=== PATIENT | male | born 1935 | race Caucasian/White ===

== ENCOUNTER 2017-09-24 16:36 | Emergency (ER) | payer OTHER ==
[~2017-09-24] VITALS: Ht 182.9 cm; Wt 103.0 kg
[2017-09-24] MEDS ORDERED: METFORMIN HCL500 MG PO (16:48)
[2017-09-24] MEDS ORDERED: SINEMET 25-2501 EAC1 PO (16:49)
[2017-09-24] MEDS ORDERED: INHALER (16:49)
[2017-09-24 17:12] LABS: ABSOLUTE EOSINOPHILS 0.1 thou/uL (0.0-0.7); ABSOLUTE LYMPHOCYTES 0.8 thou/uL (0.8-5.3); ABSOLUTE MONOCYTES 0.5 thou/uL (0.0-1.2); ABSOLUTE NEUTROPHILS 3.4 thou/uL (1.6-8.1); BASOPHILS 0.3 %; EOSINOPHILS 1.5 %; HEMATOCRIT 45.8 % (42.0-52.0); HEMOGLOBIN 15.6 gm/dL (14.0-18.0); LYMPHOCYTES 16.3 %; MCHC 34.1 g/dL (28.0-37.0); MONOCYTES 11.1 %; MPV 9.5 fl. (7.2-11.1); NUCLEATED RBCS 0 /100WBC; PLATELET COUNT* 161 thou/uL (150-400); POLYS 70.8 %; RBC 5.03 mil/uL (4.50-6.00); RDW-CV 13.5 % (10.5-14.5); WBC 4.8 thou/uL (4.0-11.0)
[2017-09-24 17:22] LABS: ANION GAP 9 mmol/L (7-16); BUN 13 mg/dL (7-18); CALCIUM 8.9 mg/dL (8.5-10.1); CHLORIDE 105 mmol/L (98-107); CO2 28 mmol/L (21-32); CREATININE 1.1 mg/dL (0.6-1.3); GLUCOSE 210 mg/dL (70-99); POTASSIUM 3.9 mmol/L (3.5-5.1); SODIUM 142 mmol/L (136-145)
[2017-09-24 17:26] LABS: APTT 25.5 Seconds (25.0-31.3); INR 1.1; PROTIME 10.6 Seconds (9.20-11.50)
[2017-09-24 17:33] LABS: ALBUMIN 3.6 g/dL (3.4-5.0); ALKALINE PHOSPHATASE 98 U/L (46-116); NT-PRO BRAIN NAT PEPTIDE 381 pg/mL (<300); SGOT 15 U/L (15-37); SGPT 17 U/L (30-65); TOTAL BILIRUBIN 0.6 mg/dL (<0.1-1.0); TOTAL PROTEIN 6.9 g/dL (6.4-8.2); TROPONIN-I LEVEL <0.06 ng/mL (<0.06)
[2017-09-24 17:38] LABS: URINE BILIRUBIN NEGATIVE (Negative); URINE BLOOD NEGATIVE (Negative); URINE CLARITY CLEAR; URINE COLOR YELLOW; URINE GLUCOSE-RANDOM NEGATIVE (Negative); URINE KETONES NEGATIVE (Negative); URINE LEUKOCYTES-REFLEX NEGATIVE (Negative); URINE NITRITE-REFLEX NEGATIVE (Negative); URINE PROTEIN NEGATIVE (Negative); URINE UROBILINOGEN 0.2 E.U./dl (0.2-1.0)
[2017-09-24] MEDS ORDERED: PREDNISONE 20 M20 M1 PO (18:13)
[2017-09-24 18:45] VITALS: BP 173/83
--- NOTE | 2017-09-25 14:10 | EKG ---
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 : 1935 Requested By: Zacarias Felder Order Number: [id number] MD: Yasir Henning Measurements Intervals [place] Rate: 98 P: 61 MO: 220 QRS: -8 QRSD: 87 T: 71 QT: 372 QTc: 476 Interpretive Statements Sinus tachycardia Multiform ventricular premature complexes Prolonged MO interval Probable left atrial enlargement No previous ECG available for comparison Electronically Signed On 09-25-2017 14:09:50 CDT by Yasir Henning [email or web address] <ELECTRONICALLY SIGNED> By: Yasir Henning MD, [facility] 09/25/17 1409 1641 1641 Yasir Henning MD, FACC /EPI
== END 2017-09-24 18:47 | disposition home or self-care (01) ==
LOC: M.ERS 16:36
PROVIDERS: Family Medicine
DX: R06.00 Dyspnea, unspecified (principal); R05 Cough; I10 Essential (primary) hypertension; G20 Parkinson's disease

== ENCOUNTER 2017-09-24 22:51 | Inpatient (IN) | payer OTHER ==
[~2017-09-24] VITALS: Ht 182.9 cm; Wt 103.4 kg
[~2017-09-24 22:51] MED LIST: INHALER; METFORMIN HCL500 MG PO; PREDNISONE 20 M20 M1 PO; SINEMET 25-2501 EAC1 PO
[2017-09-24 22:57] VITALS: BP 201/103
[2017-09-24 23:21] LABS: HEMATOCRIT 46.1 % (42.0-52.0); HEMOGLOBIN 15.7 gm/dL (14.0-18.0); MCH 30.9 pg (26.0-34.0); MCHC 34.1 g/dL (28.0-37.0); MCV 90.6 fL (80.0-100.0); MPV 9.9 fl. (7.2-11.1); NUCLEATED RBCS 0 /100WBC; PLATELET COUNT* 172 thou/uL (150-400); RBC 5.09 mil/uL (4.50-6.00); RDW-CV 13.2 % (10.5-14.5); WBC 7.2 thou/uL (4.0-11.0)
[2017-09-24 23:30] LABS: ANION GAP 10 mmol/L (7-16); BUN 14 mg/dL (7-18); CALCIUM 9.3 mg/dL (8.5-10.1); CHLORIDE 104 mmol/L (98-107); CO2 28 mmol/L (21-32); CREATININE 1.1 mg/dL (0.6-1.3); GLUCOSE 301 mg/dL (70-99); POTASSIUM 3.8 mmol/L (3.5-5.1); SODIUM 142 mmol/L (136-145)
[2017-09-24 23:31] LABS: INR 1.1; PROTIME 10.5 Seconds (9.20-11.50)
[2017-09-24 23:37] LABS: ALBUMIN 3.9 g/dL (3.4-5.0); ALKALINE PHOSPHATASE 101 U/L (46-116); SGOT 15 U/L (15-37); SGPT 7 U/L (30-65); TOTAL BILIRUBIN 0.5 mg/dL (<0.1-1.0); TOTAL PROTEIN 7.3 g/dL (6.4-8.2); TROPONIN-I LEVEL <0.06 ng/mL (<0.06)
[2017-09-24 23:59] LABS: ABSOLUTE LYMPHOCYTES 0.6 thou/uL (0.8-5.3); ABSOLUTE NEUTROPHILS 6.6 thou/uL (1.6-8.1); PLATELET ESTIMATE ADEQUATE
[2017-09-25] VITALS (13 sets, daily range): BP systolic 132–194; BP diastolic 61–100
[2017-09-25] LABS: LARGE PLATELETS OCCASIONAL
[2017-09-25 00:31] LABS: URINE BILIRUBIN NEGATIVE (Negative); URINE BLOOD NEGATIVE (Negative); URINE CLARITY CLEAR; URINE COLOR YELLOW; URINE GLUCOSE-RANDOM 3+ (Negative); URINE KETONES 1+ (Negative); URINE LEUKOCYTES-REFLEX NEGATIVE (Negative); URINE NITRITE-REFLEX NEGATIVE (Negative); URINE PROTEIN NEGATIVE (Negative); URINE UROBILINOGEN 0.2 E.U./dl (0.2-1.0)
--- NOTE | 2017-09-25 02:54 | NUR ---
PATIENT ARRIVED ON UNIT AT APPROX 0240. TRANSFERRED FROM STRETCHER TO TELE BED. SKIN ASSESSMENT COMPLETED. BLANCHABLE REDNESS NOTED TO BILATERAL BUTTOCKS. TURN Q2H COMMUNICATED TO SALESPERSON RECREATIONAL VEHICLES'S. BRANDAN HAD ONE EPISODE OF CHOKING WITH MILD EMESIS. DIET CHANGED TO NPO STATUS PENDING SWALLOW EVAL. SATIENT STATES THAT HE "TRIES TO USE HIS LEFT SIDE MORE BECAUSE MY TREMORS ARE WORSE ON THAT SIDE" SCD'S IN PLACE. SHOPPING INSPECTOR COMPLETED DOCUMENTED. FALL RISK PRECAUTIONS IN PLACE AT THIS TIME. WILL CONTINUE TO MONITOR
--- NOTE | 2017-09-25 04:28 | NUR ---
PATIENT HAD A BOUT OF PROJECTILE EMESIS. STATES HE JUST DOES NOT WANT TO LIVE LIKE THIS ANYMORE. EXPRESSED KOBY THAT HIS AND DAUGHTER WOULD BE UP TO SEE HIM IN THE AM. PATIENT RECEIVED BED BATH AND LINEN CHANGE. NO COMPLAINTS OF FURTHER NAUSEA AFTER COMPLETEION OF PATIENT CARE.
--- NOTE | 2017-09-25 07:06 | NUR ---
PATIENT REMAINED VERY NEEDY THROUGH THE NIGHT. STATES "I WANT OUT OF HERE" "THIS IS TORTURE", "WHEN WILL THE DR BE HER SO I CAN GO HOME" FALL RISK PRECAUTIONS REMAIN IN PLACE. REPOSITIONED OFTEN. HOURLY ROUNDING COMPLETED DOCUMENTED
--- NOTE | 2017-09-25 09:28 | NUR ---
ASSESSMENT COMPLETED REFER TO COMPUTER CHARTING. REPORT ANALYST TRACKING ST WITH PVCS. PATIENT RESTING IN BED UPSET ABOUT BEING IN THE HOSPITAL AND BEING NPO. PATIENTS MOUTH CLEANED WITH MOUTH SWABS. BED IN LOW AND LOCKED POSITION. CALL LIGHT WITHIN REACH. IV SALINE LOCKED. PATIENT ON 2 LITERS VIA NASAL CANNULA WITH O2 SATS READING 97%. NIH COMPLETED AND CHARTED. WILL CONTINUE TO MONITOR THIS SHIFT.
--- NOTE | 2017-09-25 12:38 | NUR ---
REPORT CALLED TO MITCH CAIN IN ICU. PATIENT TRANSFERED TO ROOM 1 AFTER MRI. FAMILY NOTIFIED.
--- NOTE | 2017-09-25 13:06 | NUR ---
Pt transferred to ICU prior to CM being able to access.
--- NOTE | 2017-09-25 14:24 | EKG ---
[place] [address] ELECTROCARDIOGRAM REPORT Name: LO LITTLE Room: [address] IN .R.#: [id number] Admission: 09/25/17 Attend Phys: Georgie Hernandez MD Discharge: Date of : 33 Report #: [id number] THIS REPORT FOR: //name// [facility] ED Test Date: 2017-09-24 Test Time: 23:43:39 Pat Name: LO LITTLE Department: Room: Gender: Tag Stringer: : 1935 Requested By: Morro Floyd Order Number: [id number] MD: Yasir Henning Measurements Intervals [place] Rate: 103 P: 30 MS: 213 QRS: -1 QRSD: 85 T: 47 QT: 341 QTc: 447 Interpretive Statements Sinus tachycardia Borderline prolonged MS interval Borderline T wave abnormalities No previous ECG available for comparison Electronically Signed On 09-25-2017 14:24:07 CDT by Yasir Henning [email or web address] <ELECTRONICALLY SIGNED> By: Yasir Henning MD, [facility] 09/25/17 1424 2343 [id number] Yasir Henning MD, FACC /EPI
--- NOTE | 2017-09-25 14:50 | NUR ---
ASSUMED CARE OF PATIENT MONITORING BP STARTED SALINE PER DR CHANG.
--- NOTE | 2017-09-25 17:14 | NUR ---
RECEIVED CONSULT FOR POSSIBLE REHAB ADMISSION. CONSULT HAS BEEN ACKNOWLEDGED BY DIRECTOR OF ACCREDITATION AND DR. VASQUEZ. PT ADMITTED WITH MEDULLARY STROKE. PT/OT/ST EVALUATIONS ARE PENDING WELL FURTHER MEDICAL WORK UP. WILL FOLLOW ALONG WITH PT TO SEE HOW HE PROGRESSES MEDICALLY AND PENDING THERAPY EVALUATIONS TO DETERMINE IF HE QUALIFIES FOR ACUTE REHAB. THANK YOU FOR THIS CONSULT.
--- NOTE | 2017-09-25 18:46 | NUR ---
PATIENT REFUSED MEAL TO ANXIOUS EAT GIVEN ZANAX TIMES 1, VERY VOCAL CONCERNED WITH LEFT FOOT MOVING.PROGRSSING TOWARD GOALS.
--- NOTE | 2017-09-25 19:43 | NUR ---
RECIEVED REPORT AND ASSUMED CARE OF PT AT 1900. PT EXTREMELY ANXIOUS ABOUT MUSCLE SPASM AND CRAMPING IN LEFT LEG. PAGED DR TIMMONS AND RECIEVED ORDERS FOR XANAX AND FENTANYL X 1 DOSE.
--- NOTE | 2017-09-25 21:35 | NUR ---
PT RESTLESS AND AGITATED. PT REPOSITIONED, MEDS GIVEN AT 1999 FOR PAIN AND ANXIETY. PT RINGING CALL LIGHT REPEATEDLY.
[2017-09-26] VITALS (11 sets, daily range): BP systolic 125–1172; BP diastolic 43–86
--- NOTE | 2017-09-26 00:33 | NUR ---
PT DISCONTINUED BOTH IV SITES, PULLED OFF MONITOR LEADS AND GOWN. RESTARTED 20 GUAGE SALINE LOCK IN RIGHT WRIST AND 18 GUAGE SALINE LOCK IN RIGHT FOREARM. REDRESSED PT AND INSTRUCTED TO CALL FOR ASSISTANCE.
[2017-09-26 04:38] LABS: ALBUMIN 3.2 g/dL (3.4-5.0); ALKALINE PHOSPHATASE 78 U/L (46-116); ANION GAP 5 mmol/L (7-16); BUN 23 mg/dL (7-18); CALCIUM 8.4 mg/dL (8.5-10.1); CHLORIDE 108 mmol/L (98-107); CHOLESTEROL 159 mg/dL (<200); CO2 31 mmol/L (21-32); CREATININE 1.1 mg/dL (0.6-1.3); GLUCOSE 159 mg/dL (70-99); HDL CHOLESTEROL 46 mg/dL (>40); LDL CHOLESTEROL 96 mg/dL (<100); POTASSIUM 3.7 mmol/L (3.5-5.1); SGOT 15 U/L (15-37); SGPT 11 U/L (30-65); SODIUM 144 mmol/L (136-145); TC:HDL 3.5 Ratio (Not establshd); TOTAL BILIRUBIN 0.4 mg/dL (<0.1-1.0); TOTAL PROTEIN 5.8 g/dL (6.4-8.2); TRIGLYCERIDE 85 mg/dL (<150); VLDL 17 mg/dL (<40)
[2017-09-26 04:40] LABS: SERUM ASSESSMENT Clear
--- NOTE | 2017-09-26 05:09 | NUR ---
PT TOOK OFF MONITORING LEADS. ENTERED PT'S ROOM AND FOUND PT REMOVING 18 GUAGE IN RIGHT OREARM WITH TEETH. PT INCONTINENT OF URINE.
--- NOTE | 2017-09-26 10:30 | NUR ---
SPOKE WITH PT AND . PT ALERT AND ABLE TO ANSWER ALL QUESTIONS. PT AND LIVE IN A SINGLE STORY HOME, HE USES A CANE. HE HAS NOT NEEDED ANY OTHER DME. HE IS FAIRLY INDEP WITH HIS ADL'S. PT DOES HAVE PARKINSON'S. THERAPY EVALS PENDING, WILL SEE HOW PT DOES WITH THERAPY TO DETERMINE DISCHARGE NEEDS. PT PLANS ON RETURNING HOME WITH . DISCUSSED ROLE OF CASE MGT, WILL CONTINUE TO FOLLOW.
--- NOTE | 2017-09-26 10:49 | NUR ---
PATIENT IS TELE STATUS.
--- NOTE | 2017-09-26 13:01 | NUR ---
CALLED REPORT TO PHIL CAIN. PATIENT WILL BE TRANSFERING TO ROOM 304 BY BED WITH NURSING STAFF. FAMILY UPDATED. ALL QUESTIONS ANSWERED TO NURSE. ALL BELONGINGS PACKED AND WILL BE SENT WITH PATIENT ALONG WITH CHART AND MEDICATIONS.
--- NOTE | 2017-09-26 16:37 | 2DMMODE ---
[place] [address] 2 D/M-MODE ECHOCARDIOGRAM Name: LO LITTLE Room: [address] IN [facility]#: [id number] Admission: 09/25/17 Attend Phys: Georgie Hernandez, Discharge: Date of : 33 Date of Service: 09/26/17 1636 Report #: [id number] THIS REPORT FOR: //name// APPROVED REPORT Study performed: 09/26/2017 10:40:37 EXAM: Comprehensive 2D, Doppler, and color-flow Echocardiogram Patient Location: In-Patient Room #: 001 Status: routine BSA: 2.25 HR: 102 bpm BP: 166/85 mmHg Rhythm: NSR Other Information Study Quality: Good Indications CVA/TIA Echo Enhancing Agent Indication: Rule out Shunt Agent(s) / Amount(s) Used: Agitated Saline 10 cc 2D Dimensions LVEF(%): 48.44 (>50%) IVSd: 14.95 (7-11mm) LVOT Diam: 22.15 (18-24mm) LVDd: 50.35 mm PWd: 11.72 (7-11mm) Ascending Ao: 34.82 (22-36mm) LVDs: 38.00 (25-40mm) Aortic Root: 30.93 mm Chandra's LVEF: 48.44 % Volumes Left Atrial Volume (Systole) LA ESV Index: 25.20 mL/m2 Aortic Valve AoV Peak Alban.: 1.53 m/s AO Peak Gr.: 9.37 mmHg LVOT Max P.14 mmHg AO Mean Gr.: 5.43 mmHg LVOT Mean P.09 mmHg LVOT Max V: 1.02 m/s AO V2 VTI: 28.23 cm LVOT Mean V: 0.66 m/[place] [address] 2 D/M-MODE ECHOCARDIOGRAM Name: LO LITTLE Room: [address] IN [facility]#: [id number] Admission: 09/25/17 Attend Phys: Georgie Hernandez, Discharge: Date of : 33 Date of Service: 09/26/17 1636 Report #: [id number] CHELA (VTI): 2.59 cm2 LVOT V1 VTI: 18.95 cm TDI Lateral E' Alban.: 0.10 m/s Pulmonary Valve PV Peak Alban.: 1.28 m/s PV Peak Gr.: 6.53 mmHg Left Ventricle The left ventricle is normal size. There is normal LV segmental wall motion. Mild to moderate concentric left ventricular hypertrophy. Left ventricular systolic function is moderately decreased. LVEF is 40%. Grade I - abnormal relaxation pattern. Right Ventricle The right ventricle is normal size. The right ventricular systolic function is normal. Atria The left atrium size is normal. Interatrial septum is intact without evidence of ASD or PFO. The right atrium size is normal. Aortic Valve Mild aortic valve sclerosis. No aortic regurgitation is present. There is no aortic valvular stenosis. Mitral Valve There is mitral annular calcification. Trace mitral regurgitation. No evidence of mitral valve stenosis. Tricuspid Valve The tricuspid valve is normal in structure. Unable to assess PA pressure. Trace tricuspid regurgitation. Pulmonic Valve The pulmonary valve is normal in structure. There is no pulmonic valvular regurgitation. Great Vessels The aortic root is normal in size. IVC is normal in size and collapses with >50% inspiration Pericardium There is no pericardial effusion. <Conclusion> [place] [address] 2 D/M-MODE ECHOCARDIOGRAM Name: LO LITTLE Room: [address]#: [id number] Admission: 09/25/17 Attend Phys: Georgie Hernandez, Discharge: Date of : 33 Date of Service: 09/26/17 1636 Report #: [id number] The left ventricle is normal size. Mild to moderate concentric left ventricular hypertrophy. Left ventricular systolic function is moderately decreased. LVEF is 40%. Grade I - abnormal relaxation pattern. The right ventricle is normal size. The left atrium size is normal. Mild aortic valve sclerosis. No aortic regurgitation is present. There is no aortic valvular stenosis. There is mitral annular calcification. Trace mitral regurgitation. The tricuspid valve is normal in structure. IVC is normal in size and collapses with >50% inspiration There is no pericardial effusion. There is normal LV segmental wall motion. Interatrial septum is intact without evidence of ASD or PFO. <ELECTRONICALLY SIGNED> By: Yasir Henning MD, [facility] 09/26/17 1636 1636 1636 Yasir Henning MD, FACC /INF
--- NOTE | 2017-09-26 17:03 | NUR ---
PATIENT TRANSFERED FROM ICU, TO [facility] AT 1350. TOOK REPORT FROM AZIZA, AGREE WITH REPORT AND ASSESMENT. PATIENT A&OX4, SLURRED SPEECH. ON ROOM AIR, IV RIGHT WRIST, SALINE LOCK. LEFT SIDED WEAKNESS. LEFT ARM FLACID, ABLE TO SQUEEZE LEFT HAND WITH MINIMAL STRENGHT, AND MOVE LEFT SHOULDER. ABLE TO LIFT LEFT LEG, REPORTING LEFT LEG SPASMS THAT IS NEW POST STROKE. BEDREST UNTIL SEEN BY PT AND OT. USING URINAL AND BEDPAN, ABLE TO CALL OUT APPROPRIATELY. NO C/O PIAN/N/V. NO OTHER CONCERNS AT THIS TIME. APPROPRIATE AND COOPORATIVE WITH CARE.
[2017-09-27] VITALS (8 sets, daily range): BP systolic 164–188; BP diastolic 64–87
[2017-09-27 02:07] LABS: GLYCOHEMOGLOBIN (HGB A1C) 7.4 % (4.8-5.6)
[2017-09-27 04:41] LABS: HEMATOCRIT 41.9 % (42.0-52.0); HEMOGLOBIN 14.6 gm/dL (14.0-18.0); MCH 31.5 pg (26.0-34.0); MCHC 34.9 g/dL (28.0-37.0); MCV 90.1 fL (80.0-100.0); MPV 10.4 fl. (7.2-11.1); RBC 4.65 mil/uL (4.50-6.00); RDW-CV 13.8 % (10.5-14.5); WBC 7.2 thou/uL (4.0-11.0)
[2017-09-27 05:00] LABS: CALCIUM 8.1 mg/dL (8.5-10.1); POTASSIUM 3.5 mmol/L (3.5-5.1); TOTAL BILIRUBIN 0.6 mg/dL (<0.1-1.0); TOTAL PROTEIN 5.5 g/dL (6.4-8.2)
--- NOTE | 2017-09-27 06:39 | NUR ---
PT SLEPT ON AND OFF OVERNIGHT, CO L FOOT SPASMS AT START OF SHIFT. ORDERS RECEIVED FOR ROBAXIN AND MEDS GIVEN WITH GOOD RELIEF. RWRIST SL. HS ACCUCHECK 185, INSULIN GIVEN ORDERED. AM LABS DRAWN. ABLE TO USE CALL LITE AND MAKE NEEDS KNOWN. SLURRED SPEECH, AOX4. L ARM AND L LEG WEAKNESS, WITH LIMITED MOVEMENT. PT TURNDED AND REPOSITIONED Q2 HOURS AND PRN HE WOULD ALLOW FOR SKIN CARE AND COMFORT. USING URINAL TO VOID. TYLENOL GIVEN ONCE OVERNIGHT. SWALLOWS PILLS WHOLE WITH THIN LIQUID WITHOUT DIFFICULTY. SUCTIONS MOUTH PRN HIMSELF FOR COMFORT.
--- NOTE | 2017-09-27 13:53 | NUR ---
DISCUSSED WITH DR MANNING, PT MAY SHOULD BE READY FOR TRSF TOMORROW. UPDATED PRADEEP/REHAB LIASON, AWAIT THEIR EVAL ON PHYSICAL THERAPY SEES PT. PT SLEEPING NOW, LEFT. WILL FOLLOW
--- NOTE | 2017-09-27 19:42 | NUR ---
PATIENT A&OX4, ON 2L O2 VIA NC. IV RIGHT WRIST SALINE LOCK. SUCTION AT BEDSIDE NEEDED FOR ACCESS MUCUS BUILDUP. UP WITH MAX ASSISTX2-3 WITH GAITBELT. C/O LEG PAIN AND MUSCLE SPASMS, RELEIF WITH MEDICATION. URINAL AT BEDSIDE, ABLE TO CALL OUT APPROPRIATELY. C/O SOA BREATHING TREATMENTS ORDERED AND STARTED, RELIEF NOTED. PATIENT REQUESTING SLEEP AIDE FOR TONIGHT, STATES HASN'T BEEN GETTING ADEQUATE SLEEP, MELATONIN ORDERED, TO BE GIVEN TONIGHT. NO OTHER CONCERS AT THIS TIME. APPROPRIATE AND COOPORATIVE WITH CARE.
[2017-09-28 03:17] VITALS: BP 155/75
--- NOTE | 2017-09-28 06:52 | NUR ---
PT SLIGHTLY ANXIOUS AT START OF SHIFT, CO SOA, VSS, ROOM AIR SAT 95%-98% ON O2 FOR COMFORT. LUNGS DIM. PT STATES IT MIGHT BE ANXIETY. MEDS GIVEN AND PT ABLE TO SLEEP LAST HALF OF SHIFT. HS ACCUCHECK 256, INSULIN GIVEN. NO LABS THIS MORNING. ABLE TO USE CALL LITE AND MAKE NEEDS KNOWN. TURNED AND REPOSITIONED Q2 HOURS AND PRN PT REQUEST. L HEMIPARESIS, ABLE TO MOVE L LEFT, OCC CO SPASM TO L LEG. SLURRED SPEECH BUT PT ABLE TO COMMUNICATE. TYLENOL GIVEN FOR DISCOMFORT. TELE SR, ST WITH PVCS.
[2017-09-28 07:40] VITALS: BP 173/73
--- NOTE | 2017-09-28 10:46 | NUR ---
PT VARIANCE, BECAUSE WORKING WITH PHYSICAL THERAPIST THIS MORNING.
--- NOTE | 2017-09-28 14:36 | NUR ---
ORDERS NOTED FOR DC TO INPT REHAB. CONFIRMED WITH DR JUAREZ THAT STRESS TEST CAN BE DONE OUTPT. DISCUSSED WITH PRADEEP/REHAB LIASON, AWAIT INSURANCE AUTH. PT AND AWARE
--- NOTE | 2017-09-28 14:54 | NUR ---
CONTINUING TO FOLLOW PT ALONG WITH DR. VASQUEZ. PT WORKING WITH THERAPIES HAS DEFINATE REHAB NEEDS. HAVE REQUESTED INSURANCE AUTHORIZATION. WILL PLAN TO ADMIT PT TO ACUTE REHAB ONCE MEDICALLY STABLE AND PENDING INSURANCE AUTHORIZATION. SPOKE WITH DENAE EVANS AND INFORMED HER OF PT'S TENTATIVE ACCEPTANCE TO REHAB PENDING AUTH. PER DENAE PT IS READY TO DISCHARGE TODAY.
[2017-09-28 15:32] VITALS: BP 149/65
[2017-09-28] MEDS ORDERED: ASPIRIN325 PO (16:34)
[2017-09-28] MEDS ORDERED: DULCOLAX5 MG PO (16:36)
[2017-09-28] MEDS ORDERED: COLACE100 MG PO (16:37)
[2017-09-28] MEDS ORDERED: METFORMIN HCL500 MG PO (16:38)
[2017-09-28] MEDS ORDERED: MELATONIN5 M1 PO (16:39)
[2017-09-28] MEDS ORDERED: LIPITOR 20 MG T20 M1 PO (16:39)
[2017-09-28] MEDS ORDERED: MUCINEX1200 MG PO (16:40)
[2017-09-28] MEDS ORDERED: MILK OF MA2400 MG/10 PO (16:40)
[2017-09-28] MEDS ORDERED: NORVASC5 M1 PO (16:42)
[2017-09-28] MEDS ORDERED: ALUM-MAG HYDRO360 ML PO (16:43)
[2017-09-28] MEDS ORDERED: PHENERGAN12.5 M2 PO (16:44)
[2017-09-28] MEDS ORDERED: SINEMET 25-2501 EAC1 PO (16:45)
[2017-09-28] MEDS ORDERED: MULTI VITAMIN1 EACH PO (16:46)
[2017-09-28] MEDS ORDERED: APAP650 PO (16:47)
[2017-09-28] MEDS ORDERED: VITAMINC500 PO (16:47)
[2017-09-28] MEDS ORDERED: VITAMIN D1000 UNIT PO (16:48)
[2017-09-28] MEDS ORDERED: ONDANSETRON HCL4 M2 PO (16:49)
[2017-09-28 16:51] VITALS: BP 149/65
--- NOTE | 2017-09-28 17:10 | NUR ---
PATIENT IS BEING DISCHARGED TO REHAB IN STABLE CONDITION. NO COMPLAINTS OF ANY PAIN TODAY. UP IN CHAIR PART OF THE DAY TOLERATED WELL. PATIENT SWALLOWS PILLS FINE WITH WATER ONLY. PATIENT LEFT VIA BED TO REHAB ROOM 322. REPORT GIVEN TO NURSE TAKING PATIENT.
[2017-09-28 17:21] VITALS: BP 149/65
[2017-09-28] MEDS ORDERED: DUONEB 2.5-0.5 M3 ML INH (17:43)
[2017-09-28] MEDS ORDERED: FISH OIL 1,001000 M2 PO (17:44)
[2017-09-28] MEDS ORDERED: ROBAXIN 750 MG750 M1 PO (17:46)
--- NOTE | 2017-10-02 12:50 | CON ---
[address] [address] CONSULTATION Name: SIDNEYLO Dimitrios Room: [address] IN M.R.#: [id number] Admission: 09/25/17 Attend Phys: Georgie Hernandez MD Discharge: 09/28/17 Date of : 34 Report #: [id number] THIS REPORT FOR: //name// CC: Ovidio Hernandez INDICATION: CVA. HISTORY OF PRESENT ILLNESS: The patient is an 82-year-old gentleman with Parkinson's who presented to the hospital and subsequently developed findings of stroke. By CTA, he was found to have a posterior right cerebral artery blockage and right internal carotid narrowing of 70% or greater. The patient was outside of the window for thrombolytics. He continues to have a facial droop and left hemiparesis. He denies any history of myocardial infarction or coronary artery disease. He reports stress testing 5 years ago at this hospital that was unremarkable. He has some dyspnea on exertion, but no shortness of breath at rest. He is without other cardiac complaint. EKG shows sinus rhythm with some nonspecific T-wave flattening, but no ST segment changes. Cardiac risk factors include hypertension and borderline dyslipidemia. He was recently started on metformin for hyperglycemia. PAST MEDICAL HISTORY: 1. Recent right posterior cerebral stroke. 2. Diabetes. 3. Hypertension. 4. Parkinson disease. 5. Borderline hyperlipidemia. FAMILY HISTORY: Noncontributory. SOCIAL HISTORY: The patient is . He does not smoke. He does not drink alcohol. ALLERGIES: None. HOME MEDICATIONS: Sinemet 25/250 one tablet b.i.d., metformin 500 mg b.i.d. REVIEW OF SYSTEMS: A 14-point review of systems positive for weakness of the left side, cough productive of thick sputum, dyspnea without orthopnea, diabetes and he wears glasses without acute visual change. Otherwise, 14-point review of systems was unremarkable. PHYSICAL EXAMINATION: VITAL SIGNS: Blood pressure 150/78, pulse 103 and regular. GENERAL: This is a pleasant gentleman who does not appear to be in distress. He has right-sided facial droop and [place] [address] CONSULTATION Name: LO LITTLE Room: [address]#: [id number] Admission: 09/25/17 Attend Phys: Georgie Hernandez MD Discharge: 09/28/17 Date of : 34 Report #: [id number] HEAD: Normocephalic, atraumatic. NECK: Without jugular venous distention. I do not appreciate carotid bruit. CHEST: Reveals clear lung penn without wheezes or rales. CARDIAC: Reveals a regular rhythm with normal S1 and S2. The patient has a soft S4. I do not appreciate any murmur. ABDOMEN: Reveals normal bowel sounds. The abdomen is soft, nontender. EXTREMITIES: Show no edema. Peripheral pulses are 2+ and easily palpable. SKIN: Warm and dry. LABORATORY DATA: A 12-lead EKG shows a normal sinus rhythm, first degree AV block, nonspecific T-wave flattening, no significant ST segment abnormalities. Labs are reviewed. Sodium 144, potassium 3.7, chloride 108, bicarbonate 31, BUN 23, creatinine 1.1, serum glucose 159. LFTs within normal limits. Troponins less than 0.06. Total cholesterol 159, triglycerides 85, HDL 46, LDL 96. White blood cell count 7.2, hemoglobin 15.7, platelet count 172,000. Carotid Doppler study shows significant velocity elevation in the mid right internal carotid artery. IMPRESSION AND RECOMMENDATIONS: 1. Acute cerebrovascular accident per primary physician and Neurology. 2. Cardiac evaluation to include echocardiogram and stress test. 3. Carotid vascular disease. The patient is being evaluated for possible right carotid endarterectomy in the near future. I do not see any cardiac contraindications, pending results of the stress test. 4. Hypertension. Would carefully adjust antihypertensive medication at this time as his blood pressure is mildly elevated. Would avoid any significant hypotension in post-cerebrovascular accident setting. 5. Borderline hyperlipidemia. Would recommend goal LDL of 70 or less in this patient with diabetes. <ELECTRONICALLY SIGNED> By: Barry Guardado MD, FACC 10/02/17 1250 1117 [id number] Guardado MD, FACC /nt
--- NOTE | 2017-10-29 15:17 | CON ---
[address] [address] CONSULTATION Name: SIDNEYLO Dimitrios Room: [address] IN .R.#: [id number] Admission: 09/25/17 Attend Phys: Georgie Hernandez MD Discharge: 09/28/17 Date of : 33 Report #: [id number] THIS REPORT FOR: //name// CC: Ovidio Hernandez DATE OF SERVICE: 09/25/2017 REASON FOR CONSULTATION: Acute CVA, carotid artery stenosis. HISTORY OF PRESENT ILLNESS: The patient is a very pleasant 82-year-old male who presented to the Emergency Department with slurred speech as well as left-sided weakness. A CTA of the head was obtained, which demonstrated 70% stenosis in the right internal carotid artery. We have been asked to evaluate the patient and give our opinion regarding these findings. He does have a history of Parkinson's disease and is followed by Dr. Haile with Neurology as an outpatient. 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 The patient currently reports continued slurred speech as well as left-sided weakness. Denies any new CVA or TIA type symptoms since admission. He denies any pain currently. He denies any nausea, vomiting, fevers, chills or chest pain. PAST MEDICAL HISTORY: 1. Parkinson's disease. 2. Diabetes mellitus. 3. Hypertension. 4. Chronic lung disease. PAST SURGICAL HISTORY: Cholecystectomy. SOCIAL HISTORY: He is a former smoker, denies any alcohol or illicit drug use. FAMILY HISTORY: Noncontributory due to his advanced age. ALLERGIES: No known drug allergies. HOME MEDICATIONS: 1. Glucophage 500 mg twice daily with meals. 2. Sinemet 25/250 mg 1 tablet twice daily. 3. An inhaler, actual medication is currently unknown. REVIEW OF SYSTEMS: A 12-point review of systems has been reviewed and is negative except for the above-mentioned in the history of present illness. PHYSICAL EXAMINATION: VITAL SIGNS: Temperature 36.5, heart rate 87, respiratory rate 16, [place] [id number] CONSULTATION Name: SIDNEYLO Room: [address]#: [id number] Admission: 09/25/17 Attend Phys: Georgie Hernandez MD Discharge: 09/28/17 Date of : 33 Report #: [id number] pressure 147/61, oxygen saturation 98% on 2 liters per nasal cannula. GENERAL: He is alert, oriented, in no acute distress. HEENT: Head is normocephalic, atraumatic. NECK: Supple, without jugular venous distention or carotid bruit. HEART: Regular rate and rhythm. CHEST: Lungs are clear to auscultation bilaterally. ABDOMEN: Soft, nontender, positive bowel sounds. EXTREMITIES: He has palpable bilateral radial and pedal pulses. NEUROLOGIC: He has a slight left facial droop, slurred speech, weakness of the left upper and lower extremities. He is able to move his left arm and leg with very little. LABORATORY DATA: Hemoglobin 15.7, hematocrit 46.1, white blood cell count 7.2, platelets 172. Sodium 142, potassium 3.8, chloride 104, CO2 28, BUN 14, creatinine 1.4, glucose is 201. ASSESSMENT AND PLAN: 1. Carotid artery stenosis with greater than 70% stenosis in the right internal carotid artery. We will obtain a carotid duplex for further evaluation of his disease. He will likely benefit from a right carotid endarterectomy, timing to be determined. Cardiology has been consulted for cardiac clearance. Of note, his acute stroke is not likely from his carotid artery stenosis as he has suffered a right medullary stroke, which would not be in the distribution from his carotid artery. 2. Acute cerebrovascular accident. Neurology is following, not felt to be a candidate for TPA. 3. Parkinson's disease. 4. Hypertension. 5. Diabetes mellitus. 6. Hyperlipidemia. We thank you for the opportunity to participate in the care of the patient. Please feel free to contact our office with any questions or concerns. <ELECTRONICALLY SIGNED> By: Kasi Rodriguez DO 10/29/17 1517 [id number] Bills /nt
--- NOTE | 2017-12-13 11:20 | CON ---
[address] [address] CONSULTATION Name: LO LITTLE Room: [address] IN M.R.#: [id number] Admission: 09/25/17 Attend Phys: Georgie Hernandez MD Discharge: 09/28/17 Date of : 33 Report #: [id number] THIS REPORT FOR: //name// CC: Ovidio Hernandez Evaluation and consultation regarding post-acute rehabilitation in an 82-year-old male with Parkinson's and a cerebrovascular accident. The patient was admitted to acute inpatient rehabilitation he was appropriate. Because of this timing, full consultation was not completed at this time and a full H and P and plan of care was dictated on the same day of service. <ELECTRONICALLY SIGNED> By: Jocelyn Belcher DO 12/13/17 1120 [id number] Belcher DO /nt
== END 2017-09-28 17:21 | DRG 64 ==
LOC: M.ERS 22:51 → M.ICU 09-25 01:42 → M.TBA-ER 09-25 01:42 → M.2W 09-25 01:42 → M.ICU 09-25 12:41 → M.3W 09-26 13:47
PROVIDERS: Emergency Medicine Emergency Medical Services; Internal Medicine; ADMIT Internal Medicine
DX: I63.9 Cerebral infarction, unspecified (principal); J96.01 Acute respiratory failure with hypoxia; I16.1 Hypertensive emergency; I10 Essential (primary) hypertension; I51.7 Cardiomegaly; I65.21 Occlusion and stenosis of right carotid artery; G20 Parkinson's disease; E11.9 Type 2 diabetes mellitus without complications; E78.5 Hyperlipidemia, unspecified; Z79.82 Long term (current) use of aspirin; Z79.899 Other long term (current) drug therapy; Z90.49 Acquired absence of other specified parts of digestive tract; Z87.891 Personal history of nicotine dependence

== ENCOUNTER 2017-09-28 17:03 | Inpatient (IN) | payer OTHER ==
[~2017-09-28] VITALS: Ht 185.4 cm; Wt 97.5 kg
[~2017-09-28 17:03] MED LIST changes: +ALUM-MAG HYDRO360 ML PO; +APAP650 PO; +ASPIRIN325 PO; +COLACE100 MG PO; +DULCOLAX5 MG PO; +LIPITOR 20 MG T20 M1 PO; +MELATONIN5 M1 PO; +MILK OF MA2400 MG/10 PO; +MUCINEX1200 MG PO; +MULTI VITAMIN1 EACH PO; +NORVASC5 M1 PO; +ONDANSETRON HCL4 M2 PO; +PHENERGAN12.5 M2 PO; +VITAMIN D1000 UNIT PO; +VITAMINC500 PO
[2017-09-28] MEDS ORDERED: DUONEB 2.5-0.5 M3 ML INH (17:43)
[2017-09-28] MEDS ORDERED: FISH OIL 1,001000 M2 PO (17:44)
[2017-09-28] MEDS ORDERED: ROBAXIN 750 MG750 M1 PO (17:46)
[2017-09-28 17:48] VITALS: BP 110/77
[2017-09-28 20:05] VITALS: BP 159/89
[2017-09-29 04:13] LABS: HEMATOCRIT 42.1 % (42.0-52.0); HEMOGLOBIN 14.6 gm/dL (14.0-18.0); MCH 31.3 pg (26.0-34.0); MCHC 34.7 g/dL (28.0-37.0); MCV 90.2 fL (80.0-100.0); MPV 10.1 fl. (7.2-11.1); RBC 4.67 mil/uL (4.50-6.00); RDW-CV 13.5 % (10.5-14.5); WBC 6.6 thou/uL (4.0-11.0)
[2017-09-29 04:29] LABS: CALCIUM 8.2 mg/dL (8.5-10.1); POTASSIUM 3.7 mmol/L (3.5-5.1)
[2017-09-29 08:15] VITALS: BP 166/82
[2017-09-29 20:12] VITALS: BP 167/74
[2017-09-30 07:55] VITALS: BP 149/70
[2017-09-30 20:00] VITALS: BP 176/91
[2017-10-01 07:40] VITALS: BP 165/78
[2017-10-01 20:12] VITALS: BP 186/96
[2017-10-01 23:05] VITALS: BP 155/70
[2017-10-02 08:08] VITALS: BP 174/75
[2017-10-02 20:11] VITALS: BP 158/72
[2017-10-03 08:00] VITALS: BP 186/75
[2017-10-03 20:00] VITALS: BP 150/82
[2017-10-04 07:38] VITALS: BP 156/76
[2017-10-04 20:00] VITALS: BP 169/72
[2017-10-05 08:11] VITALS: BP 147/75
[2017-10-05 20:00] VITALS: BP 148/64
[2017-10-06 07:30] VITALS: BP 144/67
[2017-10-06 20:00] VITALS: BP 164/74
[2017-10-07 08:00] VITALS: BP 134/76
[2017-10-07 20:00] VITALS: BP 161/79
[2017-10-08 08:26] VITALS: BP 154/65
[2017-10-08 20:00] VITALS: BP 165/70
[2017-10-09 07:25] VITALS: BP 159/71
[2017-10-09 20:00] VITALS: BP 144/80
[2017-10-10 07:30] VITALS: BP 128/55
[2017-10-10 20:00] VITALS: BP 153/72
[2017-10-11 08:00] VITALS: BP 167/71
[2017-10-11 20:00] VITALS: BP 181/84
[2017-10-12 07:30] VITALS: BP 160/85
[2017-10-12 20:00] VITALS: BP 162/73
[2017-10-13 04:53] LABS: CALCIUM 8.5 mg/dL (8.5-10.1); CREATININE 0.8 mg/dL (0.6-1.3); POTASSIUM 3.7 mmol/L (3.5-5.1)
[2017-10-13 08:00] VITALS: BP 180/92
[2017-10-13 10:00] VITALS: BP 148/82
[2017-10-13 20:00] VITALS: BP 156/71
[2017-10-14 08:17] VITALS: BP 166/73
[2017-10-14 20:00] VITALS: BP 139/80
[2017-10-15 07:45] VITALS: BP 153/69
[2017-10-15 20:00] VITALS: BP 143/75
[2017-10-16 07:50] VITALS: BP 161/73
[2017-10-16 20:00] VITALS: BP 129/72
[2017-10-17 08:11] VITALS: BP 154/69
[2017-10-17 13:34] LABS: CALCIUM 9.6 mg/dL (8.5-10.1); CREATININE 0.9 mg/dL (0.6-1.3); POTASSIUM 4.2 mmol/L (3.5-5.1)
--- NOTE | 2017-10-17 15:21 | H ---
[facility] [address] [place] [address] HISTORY AND PHYSICAL Name: LO LITTLE Room: [address] IN .R.#: [id number] Admission: 09/28/17 Attend Phys: Jocelyn Belcher DO Discharge: Date of : 34 Report #: [id number] THIS REPORT FOR: //name// CC: Ovidio Belcher DATE OF SERVICE: 09/28/2017 HISTORY OF PRESENT ILLNESS: This is an 82-year-old right hand dominant male admitted to inpatient rehabilitation to facilitate safe discharge home, status post medullary stroke with left flaccid hemiparesis, upper and lower extremity diagnosed via MRI on 09/25/2017. 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 His previous level of function was modified independent to independent with activities of daily living. His current level of function is max assist to dependent with physical and occupational therapies and mild to moderate impairment of cognition, expression, social interaction, problem solving, memory. Estimated length of stay is 18-21 days with discharge disposition to the home setting where he lives in a ranch style house. He does have a supportive spouse as well as a daughter that lives close by. No significant changes since the preadmission screening. He does have a history of Parkinson's and controlled diabetes with a hemoglobin A1c of 7.4, acute hypoxic respiratory failure, hyperlipidemia, carotid vascular disease and hypertension. PAST MEDICAL HISTORY: Parkinson's, uncontrolled diabetes, hypertension, acute hypoxic respiratory failure, hyperlipidemia, carotid vascular disease. PAST SURGICAL HISTORY: Cholecystectomy. ALLERGIES: No known drug allergies. MEDICATIONS: Reviewed, reconciled and are available in the MAR. SOCIAL HISTORY: No tobacco, alcohol or illicit drug use. PAST SURGICAL HISTORY: Cholecystectomy. REVIEW OF SYSTEMS: A 14-point review of systems is done and is negative except as mentioned in the HPI, specifically no fever, chest pain, shortness of breath, abdominal pain or distention, change in bowel or change in bladder. PHYSICAL EXAMINATION: GENERAL: Alert, oriented, no apparent distress. VITAL SIGNS: Reviewed and are stable. HEENT: Atraumatic, normocephalic. Pupils equal, round, reactive. ABDOMEN: Soft, nontender, [place] [address] HISTORY AND PHYSICAL Name: LO LITTLE Room: [address] IN [facility]#: [id number] Admission: 09/28/17 Attend Phys: Jocelyn Belcher DO Discharge: Date of : 34 Report #: [id number] NEUROLOGIC: Cranial nerves 2-12 are grossly intact. There is some left-sided facial droop. Neurologically, left hemiparesis flaccid on the left upper and lower extremity. He does have a little bit of quad firing. ASSESSMENT: 1. 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 2. Multiple medical comorbidities requiring acute medical care on a daily basis. PLAN: 1. Admission to inpatient rehabilitation. 2. PT, OT, speech, language, case management, nursing and HIMS to make evaluations and recommendations. 3. Plan of care is pending and we will team him weekly. 4. We will start Provigil and Zoloft. He did request to be a no code. <ELECTRONICALLY SIGNED> By: Jocelyn Belcher DO 10/17/17 1521 1827 [id number] Belcher DO /nt
--- NOTE | 2017-10-17 15:21 | PLAN ---
[facility] [address] [place] [address] REHAB UNIT PLAN OF CARE Name: SIDNEYLO Dimitrios Room: [address] IN .R.#: [id number] Admission: 09/28/17 Attend Phys: Jocelyn Belcher DO Discharge: Date of : 34 Report #: [id number] THIS REPORT FOR: //name// CC: Ovidio Belcher This is an 82-year-old right hand dominant male with right medullary cerebrovascular accident with left flaccid hemiparesis on upper and lower extremity. He also has multiple medical comorbidities including uncontrolled diabetes, Parkinson's, hypertension, hyperlipidemia. Medical prognosis is fair. REHABILITATION PROGNOSIS: Fair. Estimated length of stay is 21 days with discharge disposition to the home setting where he lives in a ranch style house with his who is in good health. He also has a daughter that lives close by. Previous level of function was modified independent to independent with activities of daily living. Current level of function is maximum assistance to dependent with physical and occupational therapies. He does have some mild to moderate impairment of comprehension, memory, problem solving, aphasia and dysphagia. Physical therapy will see the patient 60-90 minutes per day, 5 days per week, working on upper and lower body strength, balance, coordination, navigation. Occupational therapy will work with the patient 60-90 minutes per day, 5 days per week, working on upper and lower body strength, balance, coordination, navigation, bathing, dressing, and toileting. Speech and language pathology will work with the patient on swallow, cognition, problem solving. This is an overall plan of care, may change from time to time. We will make changes as needed and team him weekly. <ELECTRONICALLY SIGNED> By: Jocelyn Belcher DO 10/17/17 1521 1829 Paty Belcher DO /nt
[2017-10-17 20:00] VITALS: BP 163/77
[2017-10-18 08:00] VITALS: BP 160/75
[2017-10-18 20:20] VITALS: BP 170/76
[2017-10-19 07:47] VITALS: BP 154/74
[2017-10-19 20:00] VITALS: BP 148/81
[2017-10-20 08:46] VITALS: BP 169/69
[2017-10-20 20:06] VITALS: BP 138/76
[2017-10-21 07:52] VITALS: BP 139/68
[2017-10-21 19:55] VITALS: BP 152/78
[2017-10-22 07:52] VITALS: BP 158/77
[2017-10-22 20:27] VITALS: BP 151/71
[2017-10-23 08:00] VITALS: BP 147/57
[2017-10-23 19:56] VITALS: BP 165/77
[2017-10-24 08:00] VITALS: BP 170/77
[2017-10-24 19:30] VITALS: BP 159/84
[2017-10-25 08:01] VITALS: BP 150/66
[2017-10-25 20:13] VITALS: BP 127/66
[2017-10-26 08:00] VITALS: BP 148/73
[2017-10-26 20:00] VITALS: BP 126/57
[2017-10-27 08:21] VITALS: BP 130/69
[2017-10-27 20:05] VITALS: BP 160/74
[2017-10-28 08:00] VITALS: BP 149/66
[2017-10-28 19:25] VITALS: BP 148/74
[2017-10-29 07:55] VITALS: BP 154/84
[2017-10-29 19:30] VITALS: BP 128/63
[2017-10-30 07:32] VITALS: BP 172/82
[2017-10-30 19:59] VITALS: BP 133/70
[2017-10-31 04:33] LABS: ABSOLUTE EOSINOPHILS 0.2 thou/uL (0.0-0.7); ABSOLUTE LYMPHOCYTES 1.1 thou/uL (0.8-5.3); ABSOLUTE MONOCYTES 0.5 thou/uL (0.0-1.2); ABSOLUTE NEUTROPHILS 3.9 thou/uL (1.6-8.1); BASOPHILS 0.3 %; EOSINOPHILS 2.9 %; HEMATOCRIT 38.1 % (42.0-52.0); HEMOGLOBIN 12.8 gm/dL (14.0-18.0); LYMPHOCYTES 19.4 %; MCH 31.2 pg (26.0-34.0); MCHC 33.7 g/dL (28.0-37.0); MCV 92.5 fL (80.0-100.0); MONOCYTES 9.3 %; MPV 9.7 fl. (7.2-11.1); NUCLEATED RBCS 0 /100WBC; PLATELET COUNT* 185 thou/uL (150-400); POLYS 68.1 %; RBC 4.12 mil/uL (4.50-6.00); RDW-CV 13.4 % (10.5-14.5); WBC 5.7 thou/uL (4.0-11.0)
[2017-10-31 04:38] LABS: ALBUMIN 2.8 g/dL (3.4-5.0); CALCIUM 8.6 mg/dL (8.5-10.1); CREATININE 0.8 mg/dL (0.6-1.3); MAGNESIUM 1.7 mg/dL (1.8-2.4); PHOSPHORUS* 3.1 mg/dL (2.5-4.9); POTASSIUM 3.6 mmol/L (3.5-5.1); TOTAL BILIRUBIN 0.4 mg/dL (<0.1-1.0); TOTAL PROTEIN 5.7 g/dL (6.4-8.2)
[2017-10-31 07:50] VITALS: BP 140/64
[2017-10-31 19:25] VITALS: BP 149/84
[2017-11-01 07:37] VITALS: BP 142/74
[2017-11-01 08:30] LABS: CALCIUM 8.3 mg/dL (8.5-10.1); CREATININE 0.7 mg/dL (0.6-1.3); MAGNESIUM 1.8 mg/dL (1.8-2.4); PHOSPHORUS* 3.2 mg/dL (2.5-4.9); POTASSIUM 3.7 mmol/L (3.5-5.1)
[2017-11-01 19:30] VITALS: BP 127/71
[2017-11-02 04:24] VITALS: BP 127/71
[2017-11-02] MEDS ORDERED: LIORESAL 10 MG10 MG PO (04:34)
[2017-11-02] MEDS ORDERED: SINEMET 25-2501 EAC1 PO (04:37)
[2017-11-02] MEDS ORDERED: MAGOX 400400 MG PO (04:53)
[2017-11-02] MEDS ORDERED: LISINOPRIL5 MG PO (04:54)
[2017-11-02] MEDS ORDERED: HUMALOG100 UNIT/1 SUBQ (04:56)
[2017-11-02 08:00] VITALS: BP 167/66
[2017-11-02 20:00] VITALS: BP 184/87
[2017-11-02 20:30] VITALS: BP 151/68
[2017-11-03 04:40] LABS: HEMATOCRIT 38.8 % (42.0-52.0); HEMOGLOBIN 13.2 gm/dL (14.0-18.0); MCH 31.3 pg (26.0-34.0); MCV 92.1 fL (80.0-100.0); RBC 4.21 mil/uL (4.50-6.00); RDW-CV 13.3 % (10.5-14.5); WBC 4.9 thou/uL (4.0-11.0)
[2017-11-03 04:49] LABS: CALCIUM 8.7 mg/dL (8.5-10.1); CREATININE 0.7 mg/dL (0.6-1.3); MAGNESIUM 2.1 mg/dL (1.8-2.4); POTASSIUM 3.7 mmol/L (3.5-5.1)
[2017-11-03 08:00] VITALS: BP 147/75
[2017-11-03 10:01] VITALS: BP 127/71
[2017-11-03 10:18] VITALS: BP 127/71
[2017-11-03 12:00] VITALS: BP 127/71
--- NOTE | 2017-12-13 11:22 | D ---
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 DISCHARGE DISPOSITION: To home with 24/7 supervision with home health, PT, OT, nursing and speech and language pathology. FOLLOW UP: With primary care physician within 1 week, Neurology within 2 weeks. Notifications for physician were given. Continue on a diabetic, carb-controlled diet. 24/7 supervision for safety. Fall precautions. MEDICATIONS: Reviewed and reconciled by myself and are available in the MAR. Any prescriptions needed were given for one month's timeframe. His family did participate in caregiver training and were comfortable with his level care prior to the discharge to the home setting. DISCHARGE PHYSICAL EXAMINATION: GENERAL: Alert, oriented, no apparent distress. VITAL SIGNS: Reviewed and are stable. HEENT: Head: Atraumatic, normocephalic. Pupils equal, round, reactive. ABDOMEN: Soft, nontender, nondistended. NEUROLOGIC: Cranial nerves 2-12 are grossly intact with no focal neuro deficits with the exception of left upper and lower extremity hemiparesis, which has improved to roughly 3/5 on the left lower and 2-3/5 on the left upper depending on his fatigue due to his Parkinson's. <ELECTRONICALLY SIGNED> By: Jocelyn Belcher DO 12/13/17 1122 [id number] Belcher DO /nt
== END 2017-11-03 12:00 | disposition home health service (06) | DRG 64 ==
LOC: M.REH 17:03
PROVIDERS: Internal Medicine; ADMIT Physical Medicine & Rehabilitation
DX: I63.231 Cerebral infarction due to unspecified occlusion or stenosis of right carotid arteries (principal); J96.01 Acute respiratory failure with hypoxia; G81.04 Flaccid hemiplegia affecting left nondominant side; I16.1 Hypertensive emergency; E11.65 Type 2 diabetes mellitus with hyperglycemia; E78.5 Hyperlipidemia, unspecified; I10 Essential (primary) hypertension; G20 Parkinson's disease; R47.81 Slurred speech; F41.9 Anxiety disorder, unspecified; R47.1 Dysarthria and anarthria; M25.512 Pain in left shoulder; Z90.49 Acquired absence of other specified parts of digestive tract; Z79.84 Long term (current) use of oral hypoglycemic drugs; Z79.899 Other long term (current) drug therapy

== ENCOUNTER 2018-02-28 13:03 | Emergency (ER) | payer OTHER ==
[~2018-02-28] VITALS: Ht 185.4 cm; Wt 86.2 kg
[~2018-02-28 13:03] MED LIST changes: +DUONEB 2.5-0.5 M3 ML INH; +FISH OIL 1,001000 M2 PO; +HUMALOG100 UNIT/1 SUBQ; +LIORESAL 10 MG10 MG PO; +LISINOPRIL5 MG PO; +MAGOX 400400 MG PO; +ROBAXIN 750 MG750 M1 PO
[2018-02-28] MEDS ORDERED: ZANAFLEX4 MG PO (13:27)
[2018-02-28] MEDS ORDERED: PROSTATE REVIVE PO (13:32)
[2018-02-28] MEDS ORDERED: VANQUISH CAPLE1 EACH PO (13:33)
[2018-02-28] MEDS ORDERED: BILBERRY100 MG PO (13:33)
[2018-02-28 15:22] VITALS: BP 175/76
== END 2018-02-28 15:23 | disposition home or self-care (01) ==
LOC: M.ERS 13:03
DX: S01.01XA Laceration without foreign body of scalp, initial encounter (principal); G20 Parkinson's disease; E11.9 Type 2 diabetes mellitus without complications; Z86.73 Personal history of transient ischemic attack (TIA), and cerebral infarction without residual deficits; W01.0XXA Fall on same level from slipping, tripping and stumbling without subsequent striking against object, initial encounter; Y93.01 Activity, walking, marching and hiking; Y92.89 Other specified places as the place of occurrence of the external cause; Y99.8 Other external cause status

== ENCOUNTER 2019-01-24 15:00 | Emergency (ER) | payer OTHER ==
[~2019-01-24] VITALS: Ht 182.9 cm; Wt 89.8 kg
[~2019-01-24 15:00] MED LIST changes: +BILBERRY100 MG PO; +PROSTATE REVIVE PO; +VANQUISH CAPLE1 EACH PO; +ZANAFLEX4 MG PO
[2019-01-24 15:39] LABS: URINE BILIRUBIN NEGATIVE (Negative); URINE BLOOD NEGATIVE (Negative); URINE CLARITY CLEAR; URINE COLOR YELLOW; URINE GLUCOSE-RANDOM NEGATIVE (Negative); URINE KETONES NEGATIVE (Negative); URINE LEUKOCYTES-REFLEX NEGATIVE (Negative); URINE NITRITE-REFLEX NEGATIVE (Negative); URINE PROTEIN NEGATIVE (Negative); URINE UROBILINOGEN 0.2 E.U./dl (0.2-1.0)
[2019-01-24 17:20] VITALS: BP 140/70
== END 2019-01-24 17:23 | disposition home or self-care (01) ==
LOC: M.ERS 15:00
PROVIDERS: Nurse Practitioner Family
DX: S20.212A Contusion of left front wall of thorax, initial encounter (principal); E11.9 Type 2 diabetes mellitus without complications; Z86.73 Personal history of transient ischemic attack (TIA), and cerebral infarction without residual deficits; W18.39XA Other fall on same level, initial encounter; Y93.89 Activity, other specified; Y92.89 Other specified places as the place of occurrence of the external cause; Y99.8 Other external cause status